=== PATIENT | male | born 1995 | race Caucasian/White ===

== ENCOUNTER 2023-03-13 16:07 | Inpatient (IN) | payer MEDICAID, OTHER ==
[~2023-03-13] VITALS: Ht 172.7 cm; Wt 79.5 kg
[~2023-03-13 16:07] MED LIST: ALB0.5UD IH; BECL7.3A INH; PARO10TA4 PO
[2023-03-13] MEDS ORDERED: ondansetron/PF 4mg/2ml inj IV ONE (17:20)
[2023-03-13] MEDS ORDERED: normal saline 1000ML IV soln IVB ONE (17:20)
[2023-03-13 17:23] LABS: HEMOGLOBIN 16.7 g/dl (14.0-17.9)
[2023-03-13 17:24] LABS: HEMATOCRIT 49.8 % (42.0-52.0); MEAN CORPUSCULAR HEMOGLOBIN 29.5 PG (27.0-31.0); MEAN CORPUSCULAR HGB CONC 33.6 g/dL (33.0-36.5); MEAN PLATELET VOLUME 8.8 FL (7.4-10.4); PLATELET COUNT 309 X10'3 (140-440); RED BLOOD COUNT 5.67 X10'6 (4.70-6.10); WHITE BLOOD COUNT 19.8 X10'3 (4.5-11.0)
[2023-03-13 17:40] LABS: ALANINE AMINOTRANSFERASE 52 U/L (12-78); ALBUMIN 3.9 G/DL (3.4-5.0); ALBUMIN/GLOBULIN RATIO 0.9 (1.1-1.5); ALKALINE PHOSPHATASE 93 IU/L (46-116); ANION GAP 10 (8-16); BILIRUBIN,TOTAL 0.9 MG/DL (0.1-1.0); BLOOD UREA NITROGEN 15 MG/DL (7-18); BUN/CREATININE RATIO 13.3 (10.0-20.0); CALCIUM 9.3 MG/DL (8.5-10.1); CHLORIDE 103 MMOL/L (99-107); CREATININE 1.13 MG/DL (0.60-1.10); GLUCOSE 140 MG/DL (70-104); SODIUM 138 MMOL/L (135-145); TOTAL CARBON DIOXIDE 24.6 MMOL/L (24-32); TOTAL PROTEIN 8.3 G/DL (6.4-8.2); eCRCL 97 ML/MIN; eGFR 79 ML/MIN
[2023-03-13 17:44] LABS: PLATELET ESTIMATE NORMAL; TOTAL CELLS COUNTED 100
[2023-03-13 17:50] LABS: PRO BRAIN NATRIURETIC PEPTIDE < 30 PG/ML (0-125)
[2023-03-13 17:56] LABS: ASPARTATE AMINO TRANSFERASE 41 U/L (10-37); POTASSIUM 4.5 MMOL/L (3.5-5.1)
[2023-03-13] MEDS ORDERED: CefTRIAXone 2gm/D5W 50ml BAG 50 ML IV ONE (18:20)
[2023-03-13] MEDS ORDERED: normal saline 1000ML IV soln IV ONE (18:20)
[2023-03-13] MEDS ORDERED: iohexol 300mg/ml 100ml inj. ONE (18:27)
[2023-03-13 18:52] LABS: MAGNESIUM 2.1 MG/DL (1.5-2.4)
[2023-03-13] MEDS ORDERED: ondansetron/PF 4mg/2ml inj IV PRN (20:20)
[2023-03-13] MEDS ORDERED: potassium Cl 40MEQ/1/2NS 520ml 520 ML IV PRN (20:20)
[2023-03-13] MEDS ORDERED: HYDROcodone/acetaminophen 5mg/325mg tablet PO PRN (20:20)
[2023-03-13] MEDS ORDERED: mag hydrox/Alum hydrox/simeth 30ml oral suspension PO PRN (20:20)
[2023-03-13] MEDS ORDERED: morphine 2 MG/ML inj. syringe IV PRN (20:20)
[2023-03-13] MEDS ORDERED: magnesium hydroxide 30ml (MOM) UD suspension PO PRN (20:20)
[2023-03-13] MEDS ORDERED: HYDROcodone/acetaminophen 10/325mg tab PO PRN (20:20)
[2023-03-13] MEDS ORDERED: piperacillin/tazo 3.375gm/50ml 50 ML IV ONE (20:20)
[2023-03-13] MEDS ORDERED: magnesium 2GM in 50ml NS 50 ML IV PRN (20:20)
[2023-03-13] MEDS ORDERED: potassium Cl 20 mEq SR tablet PO PRN (20:20)
[2023-03-13] MEDS ORDERED: magnesium 4gm in 100ml NS 100 ML IV PRN (20:20)
--- NOTE | 2023-03-13 22:59 | NUR ---
Got report from Liza HOLLEY from ER and will give report to Flakita Mauricio once she is available.
[2023-03-13 23:15] VITALS: BP 115/57; PULSE 106; RESP 16; TEMP 99.6; O2SAT 98
[2023-03-13 23:23] LABS: BILIRUBIN,URINE NEGATIVE (Neg); CLARITY,URINE CLEAR (Clear); COLOR,URINE YELLOW (Yellow); GLUCOSE, URINE NEGATIVE (Neg); KETONES,URINE NEGATIVE (Neg); LEUKOCYTE ESTERASE ,URINE NEGATIVE (Neg); NITRITES, URINE NEGATIVE (Neg); OCCULT BLOOD,URINE NEGATIVE (Neg); PH,URINE 6.5 (4.8-8.0); PROTEIN,URINE NEGATIVE (Neg); UROBILINOGEN,URINE 0.2 E.U/dL (0.2-1.0)
[2023-03-13 23:29] LABS: UA COLLECTION TYPE URINAL
[2023-03-13] MEDS: dextrose 5%-1/2 normal saline 1,000 ML IV SCH (23:32)
[2023-03-13 23:38] LABS: URINE AMPHETAMINE SCREEN NEGATIVE (Neg); URINE BARBITUATE SCREEN NEGATIVE (Neg); URINE BENZODIAZEPINES SCREEN NEGATIVE (Neg); URINE CANNABINOID SCREEN NEGATIVE (Neg); URINE COCAINE SCREEN NEGATIVE (Neg); URINE METHADONE SCREEN NEGATIVE (Neg); URINE OPIATE SCREEN NEGATIVE (Neg); URINE PHENCYCLIDINE SCREEN NEGATIVE (Neg)
[2023-03-14] VITALS (10 sets, daily range): BP systolic 99–110; BP diastolic 45–67; PULSE 68–101; RESP 16–18; TEMP 97.1–99.7; O2SAT 95–99
--- NOTE | 2023-03-14 06:10 | NUR ---
Patient in room ORTHO 4017. I have received report from Ev HOLLEY and had the opportunity to ask questions and assume patient care.
--- NOTE | 2023-03-14 06:10 | NUR ---
Problems reprioritized. Patient report given, questions answered & plan of care reviewed with KISHAN MONTGOMERY.
[2023-03-14] MEDS: piperacillin/tazo 4.5gm/100ml 100 ML IV SCH ×4 (07:16→23:40)
[2023-03-14] MEDS: docusate sod 100mg capsule PO SCH ×2 (08:00→20:00)
[2023-03-14 08:13] LABS: ALANINE AMINOTRANSFERASE 30 U/L (12-78); ALBUMIN 2.5 G/DL (3.4-5.0); ALBUMIN/GLOBULIN RATIO 0.8 (1.1-1.5); ALKALINE PHOSPHATASE 56 IU/L (46-116); ANION GAP 9 (8-16); ASPARTATE AMINO TRANSFERASE 10 U/L (10-37); BILIRUBIN,TOTAL 0.5 MG/DL (0.1-1.0); BLOOD UREA NITROGEN 12 MG/DL (7-18); BUN/CREATININE RATIO 11.3 (10.0-20.0); CALCIUM 7.5 MG/DL (8.5-10.1); CHLORIDE 105 MMOL/L (99-107); CREATININE 1.06 MG/DL (0.60-1.10); GLUCOSE 111 MG/DL (70-104); MAGNESIUM 1.4 MG/DL (1.5-2.4); POTASSIUM 3.1 MMOL/L (3.5-5.1); SODIUM 138 MMOL/L (135-145); TOTAL CARBON DIOXIDE 23.6 MMOL/L (24-32); TOTAL PROTEIN 5.7 G/DL (6.4-8.2); eCRCL 103 ML/MIN; eGFR 85 ML/MIN
[2023-03-14 08:26] LABS: BASOPHILS % (AUTO) 0.3 % (0-1); EOSINOPHILS % (AUTO) 0.2 % (0-6); HEMATOCRIT 38.4 % (42.0-52.0); HEMOGLOBIN 13.3 g/dl (14.0-17.9); LYMPHOCYTES # (AUTO) 0.7 X10'3 (1.1-4.8); LYMPHOCYTES % (AUTO) 7.4 % (21-51); MEAN CORPUSCULAR HEMOGLOBIN 30.3 PG (27.0-31.0); MEAN CORPUSCULAR HGB CONC 34.7 g/dL (33.0-36.5); MEAN CORPUSCULAR VOLUME 87.2 FL (78-98); MEAN PLATELET VOLUME 8.8 FL (7.4-10.4); MONOCYTES # (AUTO) 0.7 X10'3 (0-0.9); MONOCYTES % (AUTO) 6.8 % (2-12); NEUTROPHILS # (AUTO) 8.3 X10'3 (1.8-7.7); NEUTROPHILS % (AUTO) 85.3 % (42-75); PLATELET COUNT 219 X10'3 (140-440); RED CELL DISTRIBUTION WIDTH 12.8 % (11.5-14.5); WHITE BLOOD COUNT 9.7 X10'3 (4.5-11.0)
[2023-03-14] MEDS: K and/or MAG REPLACEMENT MC SCH ×2 (08:28→20:00)
[2023-03-14] MEDS: magnesium Cl slow-release 64mg tablet PO PRN ×2 (08:31→21:04)
[2023-03-14] MEDS: acetaminophen 325mg tablet PO PRN (08:40)
[2023-03-14] MEDS: enoxaparin 40mg/0.4ml syringe SUBCUT SCH (08:41)
[2023-03-14 09:03] LABS: C DIFF ANTIGEN NEGATIVE (NEGATIVE); C DIFF SPECIMEN=DIARRHEA? ACCEPTABLE; C DIFFICILE TOXINS A&B NEGATIVE (Neg)
[2023-03-14] MEDS: dextrose 5%-1/2 normal saline 1,000 ML IV SCH ×2 (09:36→18:57)
--- NOTE | 2023-03-14 10:40 | NUR ---
Following METAL CNC OPERATOR KD. This jingle writer's own assessments and documentation were completed.
--- NOTE | 2023-03-14 10:56 | NUR ---
Student documentation:RACHAEL Lujan State I have reviewed and agree with all interventions, assessments performed and documented by the student.
[2023-03-14] MEDS: potassium Cl 20 mEq SR tablet PO PRN ×2 (12:48→17:04)
[2023-03-14] MEDS: albuterol 2.5 MG/3 ML nebule NEB PRN ×2 (14:39→20:40)
[2023-03-14] MEDS: budesonide 0.5mg/2ml UD nebule IH SCH ×2 (14:39→20:40)
--- NOTE | 2023-03-14 18:34 | NUR ---
Patient in room ORTHO 4017. I have received report from MARYURI MONTGOMERY and had the opportunity to ask questions and assume patient care.
[2023-03-15] VITALS (9 sets, daily range): BP systolic 117; BP diastolic 58–67; PULSE 72–95; RESP 16–18; TEMP 97.9–99; O2SAT 97–99
[2023-03-15] MEDS: dextrose 5%-1/2 normal saline 1,000 ML IV SCH ×2 (03:28→14:20)
[2023-03-15 06:09] LABS: BASOPHILS % (AUTO) 0.4 % (0-1); EOSINOPHILS # (AUTO) 0.2 X10'3 (0-0.9); HEMATOCRIT 39.1 % (42.0-52.0); HEMOGLOBIN 13.2 g/dl (14.0-17.9); LYMPHOCYTES # (AUTO) 1.6 X10'3 (1.1-4.8); LYMPHOCYTES % (AUTO) 27.8 % (21-51); MEAN CORPUSCULAR HEMOGLOBIN 29.7 PG (27.0-31.0); MEAN CORPUSCULAR HGB CONC 33.7 g/dL (33.0-36.5); MEAN CORPUSCULAR VOLUME 88.3 FL (78-98); MEAN PLATELET VOLUME 8.4 FL (7.4-10.4); MONOCYTES # (AUTO) 0.8 X10'3 (0-0.9); MONOCYTES % (AUTO) 13.5 % (2-12); NEUTROPHILS # (AUTO) 3.2 X10'3 (1.8-7.7); NEUTROPHILS % (AUTO) 54.3 % (42-75); PLATELET COUNT 207 X10'3 (140-440); RED BLOOD COUNT 4.43 X10'6 (4.70-6.10); WHITE BLOOD COUNT 5.9 X10'3 (4.5-11.0)
--- NOTE | 2023-03-15 06:34 | NUR ---
Problems reprioritized. Patient report given, questions answered & plan of care reviewed with MARYURI SANTANA.
[2023-03-15 06:37] LABS: ALANINE AMINOTRANSFERASE 35 U/L (12-78); ALBUMIN 2.6 G/DL (3.4-5.0); ALBUMIN/GLOBULIN RATIO 0.7 (1.1-1.5); ALKALINE PHOSPHATASE 54 IU/L (46-116); ANION GAP 7 (8-16); ASPARTATE AMINO TRANSFERASE 29 U/L (10-37); BILIRUBIN,TOTAL 0.4 MG/DL (0.1-1.0); BLOOD UREA NITROGEN 4 MG/DL (7-18); BUN/CREATININE RATIO 3.8 (10.0-20.0); CALCIUM 8.2 MG/DL (8.5-10.1); CHLORIDE 107 MMOL/L (99-107); CREATININE 1.04 MG/DL (0.60-1.10); GLUCOSE 105 MG/DL (70-104); MAGNESIUM 2.1 MG/DL (1.5-2.4); POTASSIUM 3.5 MMOL/L (3.5-5.1); SODIUM 141 MMOL/L (135-145); TOTAL CARBON DIOXIDE 27.1 MMOL/L (24-32); TOTAL PROTEIN 6.1 G/DL (6.4-8.2); eCRCL 105 ML/MIN; eGFR 87 ML/MIN
[2023-03-15] MEDS: K and/or MAG REPLACEMENT MC SCH ×2 (08:00→20:00)
[2023-03-15] MEDS ORDERED: PARoxetine 10mg tablet PO SCH (08:00)
[2023-03-15] MEDS: docusate sod 100mg capsule PO SCH ×2 (08:00→20:46)
--- NOTE | 2023-03-15 08:30 | NUR ---
Patient had positive MRSA nasal swab. Md notified. Patient alert and oriented. Diet advanced to regular as tolerated and has been tolerating well with no n/v. Showered today on day shift. Md noted say patient will be discharged when ready.
[2023-03-15] MEDS: enoxaparin 40mg/0.4ml syringe SUBCUT SCH (08:34)
[2023-03-15] MEDS: budesonide 0.5mg/2ml UD nebule IH SCH ×2 (08:49→20:32)
[2023-03-15] MEDS: albuterol 2.5 MG/3 ML nebule NEB PRN ×2 (08:49→20:32)
[2023-03-15] MEDS: piperacillin/tazo 4.5gm/100ml 100 ML IV SCH ×2 (09:39→15:59)
--- NOTE | 2023-03-15 18:01 | NUR ---
Following AUTOMATIC OVEN OPERATOR documentation and IV medications. This director underwriter sales performed own physical assessment on this patient. No assessment was performed by AUTOMATIC OVEN OPERATOR for review. AUTOMATIC OVEN OPERATOR did not communicate with this director underwriter sales for medication pass, plan of care.
--- NOTE | 2023-03-15 18:35 | NUR ---
Received report from Sweta HOLLEY and Catalina Coppola.
[2023-03-15] MEDS: acetaminophen 325mg tablet PO PRN (20:47)
[2023-03-16] MEDS: dextrose 5%-1/2 normal saline 1,000 ML IV SCH (00:41)
[2023-03-16] MEDS: piperacillin/tazo 4.5gm/100ml 100 ML IV SCH ×2 (00:45→08:14)
[2023-03-16 06:00] VITALS: BP 104/58; PULSE 73; RESP 16; TEMP 98.2; O2SAT 99
--- NOTE | 2023-03-16 06:39 | NUR ---
Patient in room ORTHO 4017. I have received report from KISHAN Keenan and had the opportunity to ask questions and assume patient care.
[2023-03-16 06:40] LABS: BASOPHILS % (AUTO) 0.4 % (0-1); EOSINOPHILS # (AUTO) 0.4 X10'3 (0-0.9); HEMATOCRIT 38.7 % (42.0-52.0); HEMOGLOBIN 13.1 g/dl (14.0-17.9); LYMPHOCYTES # (AUTO) 2.3 X10'3 (1.1-4.8); LYMPHOCYTES % (AUTO) 35.7 % (21-51); MEAN CORPUSCULAR HEMOGLOBIN 29.9 PG (27.0-31.0); MEAN CORPUSCULAR HGB CONC 33.9 g/dL (33.0-36.5); MEAN CORPUSCULAR VOLUME 88.1 FL (78-98); MEAN PLATELET VOLUME 8.5 FL (7.4-10.4); MONOCYTES # (AUTO) 0.6 X10'3 (0-0.9); NEUTROPHILS % (AUTO) 47.9 % (42-75); PLATELET COUNT 224 X10'3 (140-440); WHITE BLOOD COUNT 6.3 X10'3 (4.5-11.0)
[2023-03-16 07:03] LABS: ALANINE AMINOTRANSFERASE 36 U/L (12-78); ALBUMIN 2.7 G/DL (3.4-5.0); ALBUMIN/GLOBULIN RATIO 0.8 (1.1-1.5); ALKALINE PHOSPHATASE 60 IU/L (46-116); ANION GAP 8 (8-16); ASPARTATE AMINO TRANSFERASE 20 U/L (10-37); BILIRUBIN,TOTAL 0.3 MG/DL (0.1-1.0); BLOOD UREA NITROGEN 3 MG/DL (7-18); BUN/CREATININE RATIO 3.2 (10.0-20.0); CALCIUM 8.7 MG/DL (8.5-10.1); CHLORIDE 107 MMOL/L (99-107); CREATININE 0.94 MG/DL (0.60-1.10); GLUCOSE 87 MG/DL (70-104); SODIUM 143 MMOL/L (135-145); TOTAL CARBON DIOXIDE 27.9 MMOL/L (24-32); TOTAL PROTEIN 6.3 G/DL (6.4-8.2); eCRCL 116 ML/MIN; eGFR > 90 ML/MIN
[2023-03-16 07:13] LABS: POTASSIUM 2.9 MMOL/L (3.5-5.1)
--- NOTE | 2023-03-16 07:17 | NUR ---
Received a call from Rocio in lab regarding a critical potassium of 2.9. Message given to primary nurse Grisel.
[2023-03-16] MEDS: K and/or MAG REPLACEMENT MC SCH (08:00)
[2023-03-16] MEDS ORDERED: Potassium Cl inj 40 MEQ in sodium chloride 0.45% 500ml 500 ML IV ONE (08:00)
[2023-03-16] MEDS: docusate sod 100mg capsule PO SCH (08:00)
--- NOTE | 2023-03-16 08:06 | NUR ---
pt has a critical lab value called from Rocio from Lab, I notified Doctor Onesimo, he is aware and ordered 60 meq IV prior to being discharged today. I have called pharmacy and they said they will be bringing medication to the floor. I will continue to look in ominicell and give K BARBIE. Addendum: 03/16/23 at 1106 by Grisel Jarrell RN pt is getting 60 meq orally once not IV
[2023-03-16 08:12] VITALS: PULSE 72; RESP 16; O2SAT 99
[2023-03-16] MEDS: albuterol 2.5 MG/3 ML nebule NEB PRN (08:12)
[2023-03-16] MEDS: budesonide 0.5mg/2ml UD nebule IH SCH (08:12)
[2023-03-16] MEDS: enoxaparin 40mg/0.4ml syringe SUBCUT SCH (08:15)
[2023-03-16 08:21] VITALS: PULSE 90; RESP 16
[2023-03-16] MEDS ORDERED: potassium Cl 20 mEq SR tablet PO STA ×2 (08:45→12:15)
--- NOTE | 2023-03-16 11:06 | NUR ---
Pt received 60 meq k this morning one time and will be getting redrawn to see if patient can be discharged today.
[2023-03-16 11:40] VITALS: RESP 15
[2023-03-16 13:20] LABS: ALANINE AMINOTRANSFERASE 38 U/L (12-78); ALBUMIN 2.9 G/DL (3.4-5.0); ALBUMIN/GLOBULIN RATIO 0.7 (1.1-1.5); ALKALINE PHOSPHATASE 60 IU/L (46-116); ANION GAP 3 (8-16); ASPARTATE AMINO TRANSFERASE 21 U/L (10-37); BILIRUBIN,TOTAL 0.5 MG/DL (0.1-1.0); BLOOD UREA NITROGEN 2 MG/DL (7-18); BUN/CREATININE RATIO 2.1 (10.0-20.0); CALCIUM 8.7 MG/DL (8.5-10.1); CHLORIDE 106 MMOL/L (99-107); CREATININE 0.97 MG/DL (0.60-1.10); GLUCOSE 100 MG/DL (70-104); POTASSIUM 3.4 MMOL/L (3.5-5.1); SODIUM 137 MMOL/L (135-145); TOTAL CARBON DIOXIDE 27.6 MMOL/L (24-32); TOTAL PROTEIN 6.8 G/DL (6.4-8.2); eCRCL 113 ML/MIN; eGFR > 90 ML/MIN
[2023-03-16] MEDS ORDERED: METR-159 PO (13:54)
[2023-03-16] MEDS ORDERED: POTA-206 PO (13:54)
[2023-03-16] MEDS ORDERED: LACT1CAP26 PO (13:54)
[2023-03-16] MEDS ORDERED: LEVO-65 PO (13:54)
--- NOTE | 2023-03-16 14:46 | NUR ---
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 Pt seen by RD at bedside for written/verbal IBS diet ed w/ RD contact information provided. Pt reports only food that causes symptoms is red meat otherwise no issues. Pt does report eating taquitos PHOTOENGRAVING PRINTER; if beef then may have triggered GI issues though fat content as well also possibility. Pt does report taking routine MVM at home. RD encouraged pt to contact dietitian's office if further nutrition questions/concerns. Pt is being discharged this afternoon per RN; now tolerating regular diet after advancing from inital clear liquids. Will monitor for further nutrition intervention needs if discharge post-poned. Addendum: 03/16/23 at [address] Amended: Links added.
== END 2023-03-16 15:05 | disposition home or self-care (01) | DRG 872 ==
LOC: ER 16:08 → ED HOLD 20:20 → ORTHO 4S 23:10
PROVIDERS: ADMIT Internal Medicine; ATTEND Internal Medicine
PROC: BW211ZZ Computerized Tomography (CT Scan) of Abdomen and Pelvis using Low Osmolar Contrast (ICD-10-PCS; principal; 2023-03-13)
DX: A41.9 Sepsis, unspecified organism (principal); K52.9 Noninfective gastroenteritis and colitis, unspecified; J45.909 Unspecified asthma, uncomplicated; F32.A Depression, unspecified
CPT/HCPCS: 36415; 71045; 74018; 74177; 80053; 80305; 81003; 82948; 83605; 83735; 83880; 84145; 84484; 85007; 85025; 87040; 87045; 87046; 87081; 87324; 87449; 89055; 94640; 94760; 96365; 96367; 96375; 99285; G0378; J0696; J1650; J2405; J2543; J3490; J7030; J7042; Q9967

== ENCOUNTER 2024-11-09 06:29 | Emergency (ER) | payer OTHER ==
[~2024-11-09] VITALS: Ht 172.7 cm; Wt 84.1 kg
[~2024-11-09 06:29] MED LIST changes: +LACT1CAP26 PO; -PARO10TA4 PO; +POTA-206 PO
[2024-11-09 06:38] VITALS: BP 134/90; PULSE 64; RESP 18; TEMP 98.3; O2SAT 100
--- NOTE | 2024-11-09 06:58 | Physician Documentation ---
History of Present Illness ~ Chief Complaint: Rash Stated Complaint: HAND PAIN Time Seen by MD: 06:43 OK to notify your PCP?: Yes Primary Medical Doctor: matilde [facility] This is a 29-year-old male patient with a history of IBS, asthma, hand eczema came to the emergency room because of flare-up of hand eczema that has been going on for two weeks. Both hands has been swollen with scaling of the skin and blistering and also some redness affecting the fingers and the palms for two weeks. He has not seen his share dairy farmer for this but normally his share dairy farmer takes care of that. Because of this eczema he has pain in his wrist and also tension in his hands. He has no fever no chills. He does not endorse any other symptoms. He is about to see his primary care end of the week. He does not smoke drink or use drugs. Medication Reconciliation Allergies: Coded Allergies: No Known Allergies (Unverified , 03/25/11) Scheduled Beclomethasone Dipropionate (Qvar 40 MCG INHALER), 2 PUFFS INH BID, (Reported) Cephalexin Monohydrate (Cephalexin), 1 CAP PO Q8H Lactobacillus Rhamnosus (Culturelle), 1 CAP PO DAILY Methylprednisolone (Medrol Dosepak), 0 PO UD Potassium Chloride (K-Dur), 10 MEQ PO DAILY Scheduled PRN Albuterol Sulfate Nebs* (Proventil Nebs*), 2.5 MG IH Q4H PRN for SOB or wheezing, (Reported) Past Medical History Past Medical History: Asthma, Depression Past Surgical History: no surgical history Patient History: FH: colon cancer GRANDFATHER OR GRANDMOTHER (Grandfather), FH: diabetes mellitus FH: heart disease Alcohol Use: None Drug Use: none Lives with: Father Lives In: Home Occupation: student Review of Systems ROS As stated above in the HPI, otherwise all systems are reviewed and negative. Physical Exam Vital Signs: Temperature: 98.3, Source: Temporal, Heart Rate: 64, Respiratory Rate: 18, BP: 134/90, Pulse Oximetry: 100, Weight: 84.090 Oxygen Flow Rate: 0 Physical Exam I reviewed vital signs and they are well within normal range. Const: Well bit well nourished adult male not in acute distress Head: Atraumatic Eyes: Normal Conjunctiva ENT: Normal External Ears, Nose and Mouth. Moist mucous membranes Neck: Full range of motion. No meningismus Resp: Clear to auscultation bilaterally. Normal work of breathing Cardio: Regular rate and rhythm, no murmurs. Skin well perfused Abd: Soft, non-tender, non-distended. Normal bowel sounds. No rebound or guarding Skin: No petechiae or rashes. Warm and dry Back: No midline or flank tenderness Ext: No cyanosis, or edema Both hands are affected. There are scaling of the skin of the fingers in the palms. There are some areas of erythema. The hands are swollen. Distal circulation and sensation intact. I did not notice any blister at this point. Neuro: Awake and alert Psych: Normal Mood and Affect Progress Results/Orders Results/Orders Completed Orders - HALINA BAUMANN MD Dexamethasone Inj (Decadron 4mg/Ml Inj) (11/09/24 06:55) Medications Received in ER Medications (Trade) Dose Ordered Sig/Marielena Route PRN Reason Start Time Stop Time Status Last Admin Dose Admin (Decadron 4mg/ml inj) 4 mg Q6H IM 11/09/24 06:55 11/09/24 07:39 DC 11/09/24 07:26 4 MG Vital Signs 11/09/24 06:38 Temp 98.3 Pulse 64 Resp 18 B/P (MAP) 134/90 Pulse Ox 100 O2 Flow Rate 0 Medical Decision Making Findings During the physical examination, the findings suggestive of acute life- threatening condition such as JVD, tracheal deviation, acidotic breathing, noisy stridorous breath sounds, pulses paradoxus, muffled heart sounds, unequal breath sounds, abdominal rigidity and rebound tenderness, focal neurological deficits, cool clammy skin, severe hypotension, severe tachycardia or bradycardia are absent. It does look like intense case of hand eczema. I will give him some steroid and antibiotics and zoryve cream. Patient is advised to see his primary care and share dairy farmer as soon as possible. His dermatological appointment is in December so I told him to call his share dairy farmer rj to expedite the appointment. DISCLAIMER Inadvertent spelling and grammatical errors,inadvertent sticker operator errors,syntax errors, grammatical errors, and spelling errors are likely due to EMR/dictation software use and do not reflect on the overall quality of patient care. Note that the electronic time recorded on this note does not necessarily reflect the actual time of the patient encounter. Departure Disposition: 01 HOME / SELF CARE / HOMELESS Impression: Primary Impression: Hand eczema Additional Impression: Acute hand eczema Condition: Stable Discharge Instructions: Eczema Additional Instructions: Thank you for coming to our Emergency Department today. Please see your share dairy farmer as soon as possible. Please ask your nurse or provider if you have questions about your care today and do not leave until all your questions have been answered. Please use any medications given as directed and follow-up with your doctor (or the doctor you were referred to) in the next 1-3 days. Your primary care doctor can help to coordinate outpatient specialty care and provide authorization for specialty referral as needed. If you do not have a primary care doctor you may follow up at a [facility] [place]. You may also use motrin and tylenol as needed for fever and/or pain unless instructed otherwise by your provider or nurse. Indications for more urgent follow-up have been discussed, but you may return to the Emergency Department at ANY time for any worrisome or worsening symptoms. Referrals: NO PRIMARY CARE PROVIDER (PCP) Prescriptions Cephalexin Monohydrate (Cephalexin) 500 Mg Capsule 1 CAP PO Q8H for 10 Days, #30 CAP Prov: HALINA BAUMANN MD 11/09/24 Methylprednisolone (Medrol Dosepak) 4 Mg Tab.ds.pk 0 PO UD, #16 TAB 0 Refills take 6 Pills Day 1, 4 Pills Day 2, 2 Pills Day 3, 1 Pills Day 4, 1 Pills Day 5 Prov: HALINA BAUMANN MD 11/09/24 Signature Scribe Signature: Not applicable Attestation: This is my dictation HALINA BAUMANN MD Nov 09, 2024 06:58
[2024-11-09] MEDS ORDERED: METH4TAB81 PO (07:04)
[2024-11-09] MEDS ORDERED: CEPH500C2 PO (07:04)
[2024-11-09] MEDS: dexamethasone 4mg/ml inj IM SCH (07:26)
== END 2024-11-09 07:39 | disposition home or self-care (01) ==
LOC: ER 06:29
DX: L30.9 Dermatitis, unspecified (principal); J45.909 Unspecified asthma, uncomplicated; F41.9 Anxiety disorder, unspecified; F32.A Depression, unspecified
CPT/HCPCS: 96372; 99283; J1100